=== PATIENT | male | born 1955 | race Caucasian/White ===

== ENCOUNTER 2019-07-20 14:33 | Outpatient (REF) | payer MEDICARE, MEDICAID, SELFPAY ==
[2019-07-20 21:02] LABS: Hemoglobin A1C 7.4 % (3.8-5.6)
[2019-07-20 21:15] LABS: ALT 30 U/L (16-63); AST 30 U/L (15-37); Albumin 4.1 g/dL (3.4-5.0); Alkaline Phosphatase 74 U/L (46-116); BUN 13 mg/dL (7-18); Bilirubin, Total 0.2 mg/dL (0.2-1.0); CREATININE 1.01 mg/dL (0.70-1.30); Calcium 9.1 mg/dL (8.5-10.1); Chloride 98 mmol/L (98-107); Glucose 122 mg/dL (74-106); Potassium 5.2 mmol/L (3.5-5.1); Sodium 136 mmol/L (136-145); Total Protein 7.3 g/dL (6.4-8.2)
[2019-07-20 21:20] LABS: COMMENT (LAB VIEW ONLY) 21.09 mg/dL; Microalb ug/mg Crea 30.3 ug/mg Cr
[2019-07-23 08:19] LABS: Vitamin D 25 Total 53.2 ng/ml (30-100)
== END 2019-07-20 14:53 ==
LOC: NCHCN 14:33
PROVIDERS: PCP Nurse Practitioner Community Health; Visit Provider Nurse Practitioner Community Health
DX: E55.9 Vitamin D deficiency, unspecified (principal); E11.42 Type 2 diabetes mellitus with diabetic polyneuropathy; E78.5 Hyperlipidemia, unspecified; I10 Essential (primary) hypertension; J44.9 Chronic obstructive pulmonary disease, unspecified
CPT/HCPCS: 80053; 82306; 82043; 82570; 83036

== ENCOUNTER 2019-12-27 11:36 | Outpatient (REF) | payer MEDICARE, MEDICAID, SELFPAY ==
[2019-12-27 21:29] LABS: ALT 31 U/L (16-63); AST 28 U/L (15-37); Alkaline Phosphatase 57 U/L (46-116); BUN 20 mg/dL (7-18); Bilirubin, Total 0.4 mg/dL (0.2-1.0); CREATININE 1.16 mg/dL (0.70-1.30); Calcium 9.4 mg/dL (8.5-10.1); Chloride 98 mmol/L (98-107); Glucose 151 mg/dL (74-106); Potassium 4.8 mmol/L (3.5-5.1); Sodium 137 mmol/L (136-145)
== END 2019-12-27 11:56 ==
LOC: NCHCN 11:36
PROVIDERS: PCP Nurse Practitioner Community Health; Visit Provider Nurse Practitioner Community Health
DX: I10 Essential (primary) hypertension (principal)
CPT/HCPCS: 80053

== ENCOUNTER 2020-11-28 12:22 | Outpatient (REF) | payer MEDICARE, MEDICAID, SELFPAY ==
[2020-11-28 17:14] LABS: COMMENT (LAB VIEW ONLY) 206.17 mg/dL; Microalb ug/mg Crea 10.4 ug/mg Cr
== END 2020-11-28 12:23 | disposition home or self-care (01) ==
LOC: NCHCN 12:22
PROVIDERS: PCP Nurse Practitioner Community Health; Visit Provider Nurse Practitioner Community Health
DX: E11.42 Type 2 diabetes mellitus with diabetic polyneuropathy (principal)
CPT/HCPCS: 82043; 82570

== ENCOUNTER 2021-03-16 22:24 | Outpatient (REF) | payer MEDICARE, MEDICAID, SELFPAY ==
[2021-03-16 22:54] LABS: Magnesium 1.5 mg/dL (1.8-2.4); TSH (W/Ref FT4) 0.62 uIU/mL (0.36-3.74)
[2021-03-18 10:08] LABS: HIV-1/2 Ag & Ab Screen Negative (Negative)
== END 2021-03-16 22:25 | disposition home or self-care (01) ==
LOC: NCHCN 22:24
PROVIDERS: PCP Nurse Practitioner Community Health; Visit Provider Nurse Practitioner Family
DX: R63.4 Abnormal weight loss (principal); E83.42 Hypomagnesemia; Z11.4 Encounter for screening for human immunodeficiency virus [HIV]
CPT/HCPCS: 87389; 83735; 84443

== ENCOUNTER 2021-09-01 15:20 | Outpatient (REF) | payer MEDICARE, MEDICAID, SELFPAY ==
[2021-09-01 22:26] LABS: ALT 24 U/L (16-63); AST 18 U/L (15-37); Albumin 4.2 g/dL (3.4-5.0); Alkaline Phosphatase 60 U/L (46-116); Anion Gap 6.3 mmol/L (3-11); BUN 14 mg/dL (7-18); Bilirubin, Total 0.3 mg/dL (0.2-1.0); CO2 32.7 mmol/L (21.0-32.0); Calcium 9.3 mg/dL (8.5-10.1); Calculated LDL 62 mg/dL (<100); Chloride 101 mmol/L (98-107); Cholesterol 122 mg/dL (<200); Glucose 91 mg/dL (74-106); HDL Cholesterol 44 mg/dL (40-60); Potassium 4.8 mmol/L (3.5-5.1); Sodium 140 mmol/L (136-145); Total Protein 7.2 g/dL (6.4-8.2); Triglyceride 81 mg/dL (<150)
[2021-09-01 22:33] LABS: COMMENT (LAB VIEW ONLY) 39.27 mg/dL; Microalb ug/mg Crea 10.7 ug/mg Cr
== END 2021-09-01 15:21 | disposition home or self-care (01) ==
LOC: NCHCN 15:20
PROVIDERS: PCP Nurse Practitioner Community Health; Visit Provider Nurse Practitioner Family
DX: E78.5 Hyperlipidemia, unspecified (principal); I10 Essential (primary) hypertension; E66.9 Obesity, unspecified
CPT/HCPCS: 80053; 80061; 82043; 82570

== ENCOUNTER 2022-01-19 22:14 | Outpatient (REF) | payer MEDICARE, MEDICAID, SELFPAY ==
[2022-01-19 21:19] LABS: Abs Immature Grans 0.01 10^3/uL (0.0-0.06); Absolute Basophil Count 0.04 10^3/uL (0.0-0.2); Absolute Eosinophil Count 0.23 10^3/uL (0.0-0.7); Absolute Lymphocyte Count 1.42 10^3/uL (1.2-3.4); Absolute Monocyte Count 0.66 10^3/uL (0.1-0.8); Absolute Neutrophil Count 5.29 10^3/uL (1.2-6.7); Basophils % 0.5; HCT 38.7 % (40.0-50.0); HGB 12.4 g/dL (13.5-17.5); Immature Grans % 0.1; Lymphocytes % 18.6; MCH 30.8 pg (27.0-33.0); MCV 96 fL (80-95); MPV 10.4 fL (8.0-11.0); Monocytes % 8.6; Neutrophils % 69.2; Platelet Count 263 10^3/uL (130-400); RBC 4.03 10^6/uL (4.36-5.78); RDW-SD 49.7 fL; WBC 7.65 10^3/uL (4.4-10.8)
[2022-01-19 21:29] LABS: ALT 21 U/L (16-63); AST 23 U/L (15-37); Alkaline Phosphatase 48 U/L (46-116); Anion Gap 6.2 mmol/L (3-11); BUN 21 mg/dL (7-18); Bilirubin, Total 0.2 mg/dL (0.2-1.0); CO2 32.8 mmol/L (21.0-32.0); CREATININE 1.2 mg/dL (0.70-1.30); Calcium 9.3 mg/dL (8.5-10.1); Chloride 104 mmol/L (98-107); Estimated GFR 65.87 (mL/min/1.73m2); Glucose 66 mg/dL (74-106); Magnesium 1.3 mg/dL (1.8-2.4); Potassium 4.6 mmol/L (3.5-5.1); Sodium 143 mmol/L (136-145); Total Protein 7.2 g/dL (6.4-8.2)
[2022-01-20 18:02] LABS: PSA, Screening 0.1 ng/mL (<=4.5)
[2022-01-21 10:49] LABS: Hepatitis C Ab w Rflx HCV PCR Negative (Negative)
== END 2022-01-19 22:15 | disposition home or self-care (01) ==
LOC: NCHCN 22:14
PROVIDERS: PCP Nurse Practitioner Community Health; Visit Provider Nurse Practitioner Family
DX: E11.42 Type 2 diabetes mellitus with diabetic polyneuropathy (principal); I10 Essential (primary) hypertension; E83.42 Hypomagnesemia; Z12.5 Encounter for screening for malignant neoplasm of prostate; Z11.59 Encounter for screening for other viral diseases
CPT/HCPCS: 80053; 84153; 86803; 83735; 85025